=== PATIENT | female | born 1955 | race Caucasian/White ===

== ENCOUNTER 2021-05-16 14:30 | Outpatient (RCR) | payer MEDICARE, OTHER, SELFPAY ==
--- NOTE | 2021-04-25 14:49 | HP.OTEVAL_ITS ---
Patient's Visit Information LUCIE XIE is a 66 year old F, referred to Occupational Therapy by JUAN JOSÉ SHANE, with a diagnosis of left LE lymphedema. Date of Evaluation: 04/25/21 Occupational Therapist: Elena Dumont, ZUHAIRR/Diana, CHT - Subjective This 66 year old female was seen for OT eval with dx of left LE lymphedema- pt states she began having swelling in her left LE for last three years.pt states she attempted to use compression socks for years but unsuccessful, they caused her pain- pt states she went through a number of testing and was negative for a blood clot. pt states she has been going through some lymphedema treatment in January or February at another facility but therapy got cancelled due to extended illness. pt states her last apt. was Mar. pt states she has not been able to wrap her legs since early Mar. Pt states has been ed. on exercises and wrapping but would like to know what she can do on her own- pt states she has a distance to drive to this facility and would like least amount of visits possible. 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 pt states she recently moved. - Lymphedema (Circumferential Measure) Mid-foot: right 22cm left 22.5cm Ankle: right 24cm left 23.5cm Lower calf: right 24cm left 30cm Largest calf: right 39cm left 43cm Below knee: right 36cm left 43cm Above knee: right 43cm left 52cm - Lower Limb Functional Index Lower Extremity Functional Score: 44 - Goals Demonstrate a 20% reduction in edema by d/c: Yes Demonstrate adequate knowledge of self-massage by 2nd week: Yes Demonstrate adequate knowledge skin care/prec by 2nd week: Yes Demonstrate adequate knowledge therapeutic exercises by d/c: Yes Select approp compression garment w/donning/care/wear by d/c: Yes Voice need to replace compression garment every 4-6mo by dc: Yes - Rehabilitation General Assessment: pt demo with left LE edema that limits pts ind. with ADLS and ambulation. pt has limited understanding of dx or treatments to mtg. pt would benefit from skilled OT services 2 visits to ed. pt on self manual lymph drainage, use of compression socks 20-30mmHg and ed. on skin care and preca utions. Today therapist ed. pt on skin care and precautions, use of cream daily and to avoid shaving with razor to prevent cuts- pt demo understanding- pt has lymph stim exercise handout she received from another facility -pt to bring handout next visit so this therapist can ensure understanding and ed. on necessity. ed. pt on measuring daily to ensure mtg. swelling. pt demo understanding. pt ed. on need of compression sock, wrapping or Velcro compression alternatives. pt agree to POC. Rehabilitation Potential: Good - Anticipated Interventions Education re assistive Equipment, Education re Diagnosis, Manual Lymph Drainage, Education re Life-long lymphedema Management, Education re Skin Care and Precautions, Education re Self Massage Techniques, Education re Correct Donning Tech,Care&Wearing Sched Comp Garments, Home Program - Visit Plan Frequency: Every Other Week Duration: 3 Weeks TEXT: Thank you for the opportunity to evaluate your patient. For Medicare and Medicare HMO plans, please review the plan of care and approve it. It will need to be FAXED BACK to us at [phone] for Medicare purposes. Please let me know if there are questions or concerns regarding this plan of care. Physician Signature: Date:
--- NOTE | 2021-05-16 15:16 | HP.OTDCSUM ---
It has been my pleasure to treat LUCIE XIE under orders from JUAN JOSÉ SHANE, for the diagnosis of left LE lymphedema for a total of 2 visit(s). Please see the following information for a summary of their discharge status. Objective/Function: left ankle 24cm. left lower calf 23cm. left calf 28cm. left below knee 43cm. pt demo a reduction of left calf and good understanding using compression. pt demo understanding of skin care. pt demo understanding of her exercise and is going to initiate a water aerobic program Patient Goals: Learn how to Manage Lymphedema, Learn how to Apply Compression Stockings Demonstrate a 20% reduction in edema by d/c: Yes Demonstrate adequate knowledge of self-massage by 2nd week: Yes Demonstrate adequate knowledge skin care/prec by 2nd week: Yes Demonstrate adequate knowledge therapeutic exercises by d/c: Yes Select approp compression garment w/donning/care/wear by d/c: Yes Voice need to replace compression garment every 4-6mo by dc: Yes Discharge Comments: pt was seen for 2 OT session with use of compression device of choice - therapist advised pt would benefit from compression sock- and to continue with lymph stim. exercises- pt will initiate self manual drainage along with her exercise to mtg her LE edema. pt demo understanding and agree to D/C. If there are questions or concerns regarding this patient's occupational therapy, please fell free to call me at [phone]. Thank you for the referral of this patient. Sincerely, Elena Dumont, OTR/L, CHT
== END 2021-05-16 19:00 | disposition home or self-care (01) ==
LOC: OT 14:30
DX: I89.0 Lymphedema, not elsewhere classified (principal)
CPT/HCPCS: 97166; 97530

== ENCOUNTER → 2023-11-28 | Outpatient (CLI) | payer MEDICARE, OTHER, SELFPAY | END | disposition home or self-care (01) | LOC: PSN 10:25 | PROVIDERS: PCP Internal Medicine; Referring Provider Internal Medicine Critical Care Medicine; Visit Provider Internal Medicine Critical Care Medicine | DX: R06.09 Other forms of dyspnea (principal) | CPT/HCPCS: 94060; 94726; 94729 ==

== ENCOUNTER → 2023-12-19 | Outpatient (CLI) | payer MEDICARE, OTHER, SELFPAY ==
--- NOTE | 2023-12-19 11:11 | ECHOCS_ITS ---
Reason For Study: Dyspnea/SOB Procedure This was a 2D Doppler, Color Flow transthoracic echocardiogram. Contrast injection was performed. Exam performed in department. Left Ventricle Normal LV size. The estimated ejection fraction is 60 %. Diastolic function is indeterminate. No regional wall motion abnormalities noted. Right Ventricle Normal RV size. Normal systolic function. Atria Normal left atrium. Normal right atrium. No doppler evidence for ASD. Mitral Valve There is no mitral valve stenosis. No mitral valve insufficiency. Tricuspid Valve There is no tricuspid stenosis. Unable to estimate RV systolic pressure due to insufficient tricuspid regurgitant envelope. Unable to estimate RV systolic pressure due to inadequate jet, pulmonary artery pressure probably normal. Aortic Valve There is no aortic stenosis. No aortic valve insufficiency. Pulmonic Valve There is no pulmonic valvular stenosis. No pulmonic valve insufficiency. Great Vessels Normal aortic root. Pericardium/Pleural No pericardial effusion. Medication Diluted definity 1.5ml given slow IV push to enhance endocardial definition. MMode/2D Measurements & Calculations LVIDd: 4.7 cm IVSd: 1.3 cm Ao root diam: 3.3 cm LVIDs: 2.8 cm LVPWd: 1.0 cm RVDd: 4.2 cm FS: 39.9 % LAV(MOD-bp): 55.8 ml LVAd ap4: 29.6 cm2 SV(MOD-sp4): 66.2 ml LAV(MOD-bp) Indexed: 26.7 ml/m2 LVLd ap4: 6.9 cm LAV(MOD-sp2): 55.2 ml EDV(MOD-sp4): 102.5 ml LAV(MOD-sp4): 52.2 ml EDV(sp4-el): 107.6 ml LVAs ap4: 15.7 cm2 LVLs ap4: 5.6 cm ESV(MOD-sp4): 36.3 ml ESV(sp4-el): 37.3 ml EF(MOD-sp4): 64.6 % EF(sp4-el): 65.3 % SV(sp4-el): 70.2 ml LA A4 area: 19.0 cm2 LA dimension(2D): 4.9 cm RA A4 area: 13.5 cm2 TAPSE: 2.6 cm Time Measurements MV dec time: 0.18 sec Doppler Measurements & Calculations MV E max talha: 82.7 cm/sec Lat Peak E' Talha: 6.9 cm/sec Med Peak E' Talha: 4.4 cm/sec MV A max talha: 88.1 cm/sec E/E' lat: 12.1 E/E' med: 18.8 MV E/A: 0.94 MV dec slope: 462.4 cm/sec2 Ao V2 max: 127.1 cm/sec LV V1 max: 102.4 cm/sec Ao max P.5 mmHg LV V1 max P.2 mmHg Ao V2 mean: 86.3 cm/sec Ao mean P.2 mmHg Ao V2 VTI: 25.6 cm PA V2 max: 79.9 cm/sec TR max talha: 236.9 cm/sec TR max P.5 mmHg ECHO/Echo Complete W/ Contrast Interpretation Summary The estimated ejection fraction is 60 %. Diastolic function is indeterminate. Ordering Physician: Mars Becker Referring Physician: Hermila Freeman Performed By: Sudha Rosen, LEENA, RVT
[2023-12-19 12:41] VITALS: PULSE 73; PULSE 78; PULSE 79; PULSE 82; PULSE 83; O2SAT 95; O2SAT 98; O2SAT 99
--- NOTE | 2023-12-21 09:43 | PCM.PSN.6M ---
PSN 6 Minute Walk Test 6 Minute Walk Test 6 Minute Walk Test: 6 Minute Walk Test PSN:6-Minute Walk Test Start: 12/19/23 12:41 Freq: Status: Active Protocol: [id number].[id number] Document 12/19/23 12:41 (Rec: 12/19/23 12:44 JR [id number]) 6 Minute Walk Test Date Performed 12/19/23 Time Performed 12:30 Height 5 ft 0.5 in Weight: 220 lb 0.271 oz Weight in Pounds [address]: Mars Becker Assistive device used: None Pre-test Oxygen Delivery Method Room Air Pulse Ox 95 Pulse Rate (60-100) 73 Dyspnea Woody Scale (0-10) 0 Exertion Woody Scale (6-20) 6 1st minute Oxygen Delivery Method Room Air Pulse Ox 95 Pulse Rate (60-100) 78 2nd minute Oxygen Delivery Method Room Air Pulse Ox 98 Pulse Rate (60-100) 82 3rd minute Oxygen Delivery Method Room Air Pulse Ox 99 Pulse Rate (60-100) 83 4th minute Oxygen Delivery Method Room Air Pulse Ox 98 Pulse Rate (60-100) 82 5th minute Oxygen Delivery Method Room Air Pulse Ox 98 Pulse Rate (60-100) 82 6th minute Oxygen Delivery Method Room Air Pulse Ox 98 Pulse Rate (60-100) 82 Dyspnea Woody Scale (0-10) 0 Exertion Woody Scale (6-20) 11 Post-test Oxygen Delivery Method Room Air Pulse Ox 98 Pulse Rate (60-100) 79 Full Laps Walked 18 Partial Lap, Number of Tiles Walked 0 Total Distance Walked (ft) 1062 Interpretation Interpretation: The patient ambulated 1062 feet over the course of 6 minutes beginning on room air without assistive devices. Pretesting oxygen saturation was noted to be 95% on room air. With ambulation, the lis oxygen saturation was 95%. There was no significant exertional oxygen desaturation. Recommendations Recommendations: There is no indication for the use of supplemental oxygen at this time.
== END | disposition home or self-care (01) ==
LOC: CVS 11:07
PROVIDERS: PCP Internal Medicine; Referring Provider Internal Medicine Critical Care Medicine; Visit Provider Internal Medicine Critical Care Medicine
DX: R06.09 Other forms of dyspnea (principal)
CPT/HCPCS: 93306; 94618; Q9957; A4216; C8929